=== PATIENT | male | born 1965 | race Caucasian/White ===

== ENCOUNTER 2021-04-28 07:51 | Outpatient (REF) | payer BC, SELFPAY ==
[2021-04-28 11:35] LABS: Hemoglobin 19.2 g/dl (14.0-18.0); Mean Corpuscular HGB Conc 32.8 g/dl (31.0-36.0); Mean Corpuscular Hemoglobin 29.4 pg (27.0-33.0); Mean Corpuscular Volume 89.4 fL (80-98); Mean Platelet Volume 10.2 fL (9.4-12.4); Platelet Count 221 X10*3/uL (160-400); Red Blood Count 6.54 X10*6/uL (4.60-5.80); Red Cell Distribution Width 16.8 % (11.0-16.0); White Blood Count 5.5 X10*3/uL (4.8-10.8)
[2021-04-28 11:36] LABS: Hematocrit 58.5 % (42-52)
[2021-04-28 11:46] LABS: Alanine Aminotransferase 38 U/L (0-40); Albumin Level 4.1 g/dL (3.5-5.0); Alkaline Phosphatase 46 U/L (39-117); Anion Gap 15 (12-20); Aspartate Amino Transferase 34 U/L (5-37); Bilirubin Total 0.9 mg/dL (0.0-1.0); Blood Urea Nitrogen 34 mg/dL (9-16); Carbon Dioxide 24 mmol/L (22-29); Chloride 105 mmol/L (96-108); Cholesterol 188 mg/dL; Estimated Glomerular Filt Rate > 60; Glucose Fasting 87 mg/dL (60-99); HDL Cholesterol 20 mg/dL; LDL Cholesterol Calculated 151 mg/dl; Sodium 139 mmol/L (135-145); Total Protein 6.1 g/dL (6.5-8.0); Triglycerides 89 mg/dL
== END 2021-04-28 07:52 | disposition home or self-care (01) ==
LOC: HO.MANLDS 07:51
PROVIDERS: PCP Internal Medicine; Visit Provider Internal Medicine
DX: I10 Essential (primary) hypertension (principal); Z12.5 Encounter for screening for malignant neoplasm of prostate
CPT/HCPCS: 36415; 80053; 80061; 84153; 85027

== ENCOUNTER 2021-11-28 11:45 | Outpatient (REF) | payer BC, SELFPAY ==
[2021-11-28 12:41] LABS: MANUAL DIFF FLAG NO
[2021-11-28 12:43] LABS: Basophils Absolute Auto 0.1 X10*3/uL (0.0-0.2); Basophils Percent Auto 1.2 % (0-2); Eosinophils Absolute Auto 0.2 X10*3/uL (0.0-0.4); Eosinophils Percent Auto 4.1 % (0-4); Hematocrit 44.7 % (42.0-52.0); Hemoglobin 14.2 g/dl (14.0-18.0); Imm Gran Abs Auto 0.01 X10*3/uL (0.00-0.03); Imm Gran Pct Auto 0.2 % (0.0-0.4); Lymphocytes Absolute Auto 0.9 X10*3/uL (1.2-4.9); Mean Corpuscular HGB Conc 31.8 g/dl (31.0-36.0); Mean Corpuscular Hemoglobin 29.2 pg (27.0-33.0); Mean Corpuscular Volume 91.8 fL (80.0-98.0); Monocytes Absolute Auto 0.6 X10*3/uL (0.1-1.2); Monocytes Percent Auto 15.5 % (2-11); Neutrophils Absolute Auto 2.4 x10*3/uL (2.0-8.3); Platelet Count 208 X10*3/uL (160-400); Red Blood Count 4.87 X10*6/uL (4.60-5.80); Red Cell Distribution Width 14.2 % (11.0-16.0); White Blood Count 4.1 X10*3/uL (4.8-10.8)
[2021-11-28 13:32] LABS: Alanine Aminotransferase 49 U/L (0-40); Albumin Level 4.2 g/dL (3.5-5.0); Alkaline Phosphatase 100 U/L (39-117); Anion Gap 13 (12-20); Aspartate Amino Transferase 34 U/L (5-37); Bilirubin Total 0.3 mg/dL (0.0-1.0); Blood Urea Nitrogen 23 mg/dL (9-16); Calcium 9.9 mg/dL (8.4-10.2); Carbon Dioxide 28 mmol/L (22-29); Chloride 102 mmol/L (96-108); Estimated Glomerular Filt Rate > 60; Glucose Fasting 92 mg/dL (60-99); Potassium 3.8 mmol/L (3.3-5.1); Sodium 139 mmol/L (135-145); Total Protein 6.9 g/dL (6.5-8.0)
[2021-11-28 13:57] LABS: Free T4 (Free Thyroxine) 0.88 ng/dL (0.71-1.85); Thyroid Stimulating Hormone 7.67 uIU/mL (0.32-4.0)
[2021-12-03 15:01] LABS: Testosterone, Free 4.7 pg/mL (35.0-155.0); Testosterone, Total 24 ng/dL (250-1100)
== END 2021-11-28 11:46 | disposition home or self-care (01) ==
LOC: HO.MANLDS 11:45
PROVIDERS: PCP Physician Assistant; Visit Provider Physician Assistant
DX: I25.810 Atherosclerosis of coronary artery bypass graft(s) without angina pectoris (principal); R53.83 Other fatigue
CPT/HCPCS: 36415; 80053; 84402; 84403; 84439; 84443; 85025

== ENCOUNTER 2021-12-19 10:14 | Outpatient (REF) | payer BC, SELFPAY ==
[2021-12-19 11:16] LABS: MANUAL DIFF FLAG NO
[2021-12-19 11:21] LABS: Basophils Percent Auto 0.6 % (0-2); Eosinophils Percent Auto 0.6 % (0-4); Hematocrit 46.6 % (42.0-52.0); Imm Gran Abs Auto 0.03 X10*3/uL (0.00-0.03); Imm Gran Pct Auto 0.5 % (0.0-0.4); Lymphocytes Absolute Auto 0.6 X10*3/uL (1.2-4.9); Lymphocytes Percent Auto 9.8 % (20-40); Mean Corpuscular HGB Conc 32.2 g/dl (31.0-36.0); Mean Corpuscular Hemoglobin 29.4 pg (27.0-33.0); Mean Corpuscular Volume 91.4 fL (80.0-98.0); Mean Platelet Volume 9.6 fL (9.4-12.4); Monocytes Absolute Auto 0.3 X10*3/uL (0.1-1.2); Monocytes Percent Auto 4.7 % (2-11); Neutrophils Absolute Auto 5.3 x10*3/uL (2.0-8.3); Neutrophils Percent Auto 83.8 % (45-73); Platelet Count 208 X10*3/uL (160-400); Red Cell Distribution Width 14.4 % (11.0-16.0); White Blood Count 6.4 X10*3/uL (4.8-10.8)
[2021-12-19 12:14] LABS: Alanine Aminotransferase 25 U/L (0-40); Albumin Level 4.1 g/dL (3.5-5.0); Alkaline Phosphatase 96 U/L (39-117); Anion Gap 14 (12-20); Aspartate Amino Transferase 19 U/L (5-37); Bilirubin Total 0.4 mg/dL (0.0-1.0); Blood Urea Nitrogen 22 mg/dL (9-16); Calcium 9.3 mg/dL (8.4-10.2); Carbon Dioxide 29 mmol/L (22-29); Chloride 101 mmol/L (96-108); Estimated Glomerular Filt Rate > 60; Glucose Random 235 mg/dL (60-115); Potassium 3.9 mmol/L (3.3-5.1); Sodium 140 mmol/L (135-145); Total Protein 6.8 g/dL (6.5-8.0)
[2021-12-19 12:24] LABS: Free T4 (Free Thyroxine) 0.93 ng/dL (0.71-1.85); Thyroid Stimulating Hormone 2.76 uIU/mL (0.32-4.0)
[2021-12-19 12:31] LABS: Uric Acid 6.2 mg/dL (3.4-7.0)
[2021-12-28 11:31] LABS: Testosterone, Free 320.4 pg/mL (35.0-155.0); Testosterone, Total 1047 ng/dL (250-1100)
== END 2021-12-19 10:15 | disposition home or self-care (01) ==
LOC: HO.MANLDS 10:14
PROVIDERS: PCP Physician Assistant; Visit Provider Physician Assistant
DX: I25.810 Atherosclerosis of coronary artery bypass graft(s) without angina pectoris (principal); R53.83 Other fatigue; M10.071 Idiopathic gout, right ankle and foot; E03.0 Congenital hypothyroidism with diffuse goiter
CPT/HCPCS: 36415; 80053; 84402; 84403; 84439; 84443; 84550; 85025

== ENCOUNTER 2023-05-13 12:09 | Outpatient (REF) | payer BC, SELFPAY ==
--- NOTE | ~2023-05-13 | XR_ITS ---
EXAMINATION: XR HAND, LEFT CLINICAL INFORMATION: Chronic pain. COMPARISON: None available. TECHNIQUE: PA, lateral, and oblique views of the left hand. FINDINGS: Bony alignment and mineralization are normal. There is a neutral ulnar variance. No fracture or dislocation is seen. There is mild osteoarthritic change of the second and third distal interphalangeal joints, and minimal osteoarthritic change is seen of the fourth and fifth distal interphalangeal joints. There is moderate osteoarthritic change of the third proximal interphalangeal joint. There is mild osteoarthritic change of the first carpometacarpal joint. No fracture or dislocation is seen. The proximal and distal carpal rows are intact. There is no abnormal bone erosion or periosteal thickening. No focal soft tissue swelling, gas or foreign body is seen. 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 No fracture or dislocation is seen. There is no abnormal bone erosion.
--- NOTE | ~2023-05-13 | XR_ITS ---
EXAMINATION: XR FOOT, RIGHT CLINICAL INFORMATION: Chronic pain. COMPARISON: Radiographs dated 12/18/2017. TECHNIQUE: AP, lateral, and oblique views of the right foot. FINDINGS: Bony alignment and mineralization are normal. No fracture, dislocation or right ankle joint effusion is seen. Boehler's angle is normal. There is a moderate posterior calcaneal spur. There are degenerative changes of the dorsal midfoot. There is mild osteoarthritic change of the second proximal interphalangeal joint. No unusual bony erosive change is seen. There is no focal soft tissue swelling, gas or foreign body. XR/XR foot LT min 3V IMPRESSION: 1. No fracture, dislocation or right ankle joint effusion is seen. 2. There are degenerative changes of the midfoot and forefoot, as detailed. 3. There is a moderate right calcaneal posterior spur. EXAMINATION: XR FOOT, LEFT CLINICAL INFORMATION: Chronic pain. COMPARISON: None available. TECHNIQUE: AP, lateral, and oblique views of the left foot. FINDINGS: Bony alignment and mineralization are normal. No fracture, dislocation or left ankle joint effusion is seen. Boehler's angle is normal. There is a tiny posterior calcaneal spur. No unusual bone erosion is noted. There is no focal soft tissue swelling, gas or foreign body. IMPRESSION: 1. No fracture, dislocation or left ankle joint effusion is seen. 2. There is a tiny left calcaneal posterior spur.
--- NOTE | ~2023-05-13 | XR_ITS ---
EXAMINATION: XR HAND, RIGHT CLINICAL INFORMATION: Chronic pain. COMPARISON: None available. TECHNIQUE: PA, lateral, and oblique views of the right hand. FINDINGS: Bony alignment and mineralization are normal. There is a neutral ulnar variance. There is very mild osteoarthritic change of the interphalangeal joint of the thumb. There is mild osteoarthritic change of the second through fourth proximal and distal interphalangeal joints. No acute fracture or dislocation is seen. On the lateral view, there is an ossific density seen anterior to the radiocarpal joint, which likely represents a chronic avulsed osteophyte. This is of doubtful acute clinical significance. The proximal and distal carpal rows are intact. There is no abnormal bone erosion. The ulnar styloid is intact. No focal soft tissue swelling, gas or foreign body is seen. XR/XR hand RT 2V IMPRESSION: There is multi-focal mild osteoarthritic change of the interphalangeal joints of the right first through fifth fingers. There is no abnormal bone erosion. No acute fracture or dislocation is seen.
--- NOTE | ~2023-05-13 | XR_ITS ---
EXAMINATION: XR FOOT, RIGHT CLINICAL INFORMATION: Chronic pain. COMPARISON: Radiographs dated 12/18/2017. TECHNIQUE: AP, lateral, and oblique views of the right foot. FINDINGS: Bony alignment and mineralization are normal. No fracture, dislocation or right ankle joint effusion is seen. Boehler's angle is normal. There is a moderate posterior calcaneal spur. There are degenerative changes of the dorsal midfoot. There is mild osteoarthritic change of the second proximal interphalangeal joint. No unusual bony erosive change is seen. There is no focal soft tissue swelling, gas or foreign body. XR/XR foot RT min 3V IMPRESSION: 1. No fracture, dislocation or right ankle joint effusion is seen. 2. There are degenerative changes of the midfoot and forefoot, as detailed. 3. There is a moderate right calcaneal posterior spur. EXAMINATION: XR FOOT, LEFT CLINICAL INFORMATION: Chronic pain. COMPARISON: None available. TECHNIQUE: AP, lateral, and oblique views of the left foot. FINDINGS: Bony alignment and mineralization are normal. No fracture, dislocation or left ankle joint effusion is seen. Boehler's angle is normal. There is a tiny posterior calcaneal spur. No unusual bone erosion is noted. There is no focal soft tissue swelling, gas or foreign body. IMPRESSION: 1. No fracture, dislocation or left ankle joint effusion is seen. 2. There is a tiny left calcaneal posterior spur.
[2023-05-13 14:26] LABS: Alanine Aminotransferase 44 U/L (0-40); Alkaline Phosphatase 55 U/L (39-117); Anion Gap 17 (12-20); Aspartate Amino Transferase 30 U/L (5-37); Bilirubin Total 0.5 mg/dL (0.0-1.0); Blood Urea Nitrogen 28 mg/dL (9-16); C Reactive Protein < 0.10 mg/dL (< or = 0.50); Carbon Dioxide 22 mmol/L (22-29); Chloride 101 mmol/L (96-108); Estimated Glomerular Filt Rate > 60; Glucose Random 144 mg/dL (60-115); Sodium 136 mmol/L (135-145); Total Protein 6.6 g/dL (6.5-8.0)
[2023-05-13 14:35] LABS: Erythrocyte Sedimentation Rate 2 MM/HR (0-15)
[2023-05-15 05:28] LABS: Triiodothyronine T3 Free 3.4 pg/mL (2.3-4.2)
[2023-05-17 16:44] LABS: Cyclic Citrullinated Peptide <16 UNITS
[2023-05-17 21:18] LABS: Anti DNA DS Antibody <1 IU/mL; Antibody to SS-A Antigen <1.0 NEG AI (<1.0 NEG); Antibody to SS-B Antigen <1.0 NEG AI (<1.0 NEG)
[2023-05-18 08:34] LABS: Anti Nuclear Antibody Screen NEGATIVE (NEGATIVE)
== END 2023-05-13 12:10 | disposition home or self-care (01) ==
LOC: HO.LAB 12:09
PROVIDERS: PCP Internal Medicine; Visit Provider Physician Assistant
DX: M79.641 Pain in right hand (principal); M79.642 Pain in left hand; M79.671 Pain in right foot; M79.672 Pain in left foot; R06.9 Unspecified abnormalities of breathing; E03.0 Congenital hypothyroidism with diffuse goiter
CPT/HCPCS: 36415; 73120; 73630; 80053; 84481; 85652; 86038; 86140; 86200; 86225; 86235

== ENCOUNTER 2023-06-22 13:21 | Outpatient (REF) | payer BC, SELFPAY ==
[2023-06-22 14:00] LABS: Estimated Average Glucose 154 mg/dL
[2023-06-22 14:30] LABS: Alanine Aminotransferase 51 U/L (0-40); Albumin Level 4.2 g/dL (3.5-5.0); Alkaline Phosphatase 60 U/L (39-117); Anion Gap 17 (12-20); Aspartate Amino Transferase 66 U/L (5-37); Bilirubin Total 0.3 mg/dL (0.0-1.0); Blood Urea Nitrogen 59 mg/dL (9-16); Calcium 10.5 mg/dL (8.4-10.2); Carbon Dioxide 28 mmol/L (22-29); Chloride 95 mmol/L (96-108); Estimated Glomerular Filt Rate 53; Glucose Random 132 mg/dL (60-115); Potassium 4.6 mmol/L (3.3-5.1); Sodium 135 mmol/L (135-145); Total Protein 7.3 g/dL (6.5-8.0)
[2023-06-22 14:47] LABS: Thyroid Stimulating Hormone 4.84 uIU/mL (0.32-4.0)
[2023-06-24 01:29] LABS: Thyroid Peroxidase Antibodies 1 IU/mL (<9)
[2023-06-24 02:58] LABS: Triiodothyronine T3 Free 2.3 pg/mL (2.3-4.2)
== END 2023-06-22 13:22 | disposition home or self-care (01) ==
LOC: HO.LAB 13:21
PROVIDERS: PCP Internal Medicine; Visit Provider Physician Assistant
DX: R73.01 Impaired fasting glucose (principal); E03.0 Congenital hypothyroidism with diffuse goiter
CPT/HCPCS: 36415; 80053; 83036; 84439; 84443; 84481; 86376

== ENCOUNTER 2023-06-23 12:41 | Outpatient (REF) | payer BC, SELFPAY ==
[2023-06-23 14:20] LABS: Calcium 10.3 mg/dL (8.4-10.2); Phosphorus 3.7 mg/dL (2.7-4.5)
[2023-06-25 16:34] LABS: PTHI 33 pg/mL (16-77)
== END 2023-06-23 12:42 | disposition home or self-care (01) ==
LOC: HO.LAB 12:41
PROVIDERS: PCP Internal Medicine; Visit Provider Physician Assistant
DX: N18.31 Chronic kidney disease, stage 3a (principal)
CPT/HCPCS: 36415; 82310; 82550; 83735; 83970; 84100

== ENCOUNTER 2023-07-29 10:09 | Outpatient (REF) | payer BC, SELFPAY ==
--- NOTE | ~2023-07-29 | US_ITS ---
EXAMINATION: US THYROID CLINICAL INFORMATION: Hypothyroidism with diffuse goiter, parathyroid. COMPARISON: None available. TECHNIQUE: Linear transducer grayscale and color Doppler examination with attention to the region of the thyroid. FINDINGS: SIZE: Measurements of the thyroid lobes and nodules are given in sagittal, anteroposterior and transverse dimensions respectively. Right Thyroid Lobe: 4.5 x 1.7 x 2.1 cm, volume 7.7 mL. Parenchyma: The gland echotexture is homogeneous. Thyroid vascularity is normal. Left Thyroid Lobe: 3.6 x 1.9 x 1.7 cm, volume 5.3 mL. Parenchyma: The gland echotexture is homogeneous. Thyroid vascularity is normal. Isthmus: 0.5 cm in maximum AP dimension. No focal thyroid nodule is seen. NODES: No lymphadenopathy is seen in the tissue surrounding the thyroid gland. No parathyroid adenoma identified. US/US thyroid IMPRESSION: Unremarkable thyroid ultrasound. No parathyroid adenoma identified. ACR TI-RADS RECOMMENDATION REFERENCE: Ultrasound-guided fine-needle aspiration, followup ultrasound, no further follow up. * TR1 (0 point) and TR2 (2 points): No FNA or follow up. * TR3 (3 points): FNA if more than or equal to 2.5 cm in maximum dimension, followup ultrasound in 1, 3 and 5 years if 1.5 to 2.4 cm in maximum dimension. * TR4 (4-6 points): FNA if more than or equal to 1.5 cm in maximum dimension, followup ultrasound in 1, 2, 3 and 5 years if 1 to 1.4 cm in maximum dimension. * TR5 (more than or equal to 7 points): FNA if more than or equal to 1 cm in maximum dimension, followup ultrasound every year for 5 years if 0.5 to 0.9 cm in maximum dimension. * TR3, TR4 or TR5 nodules that are below the size threshold for followup receive no follow up.
--- NOTE | ~2023-07-29 | US_ITS ---
EXAMINATION: ULTRASOUND OF KIDNEYS WITH RENAL ARTERY DOPPLER CLINICAL INFORMATION: Chronic kidney disease. COMPARISON: None available. TECHNIQUE: Ultrasound of the kidneys was performed along with color flow Doppler imaging and velocity measurements in the proximal mid and distal renal arteries. Aortic velocities were measured and renal/aortic ratios were calculated. Segmental resistive indices were obtained. FINDINGS: The kidneys appeared normal with the right kidney measuring 15.5 x 5.4 x 7.7 cm and the left kidney measuring 16.6 x 5.5 x 7.1 cm. The right kidney appears normal. On the left, there are 2 simple cysts in the mid kidney measuring 1.2 cm. No solid renal masses. No renal stones. No right-sided hydronephrosis is seen. On the left, there is a lower pole caliectasis seen. Renal cortical thickness appears normal. Velocity measurements along with resistive indices are all normal on the right with highest velocity of 183 cm/s in the mid renal artery. On the left, velocities are elevated proximally at 322 cm/s suggesting renal artery stenosis. Segmental resistive indices on the left are normal. Mid aortic velocity is 96 cm/s which allows for calculation of renal aortic ratio of 1.91 on the right and 3.35 on the left. US/US renal doppler IMPRESSION: 1. Elevated velocities in the proximal left renal artery suggesting renal artery stenosis. CT angiography could be performed for further evaluation. 2. Other incidental findings as described above including possible left-sided intrarenal caliectasis at the lower pole. If CT angiography is performed, delayed images for CT urogram could be obtained to further evaluate that.
--- NOTE | ~2023-07-29 | US_ITS ---
EXAMINATION: ULTRASOUND OF KIDNEYS WITH RENAL ARTERY DOPPLER CLINICAL INFORMATION: Chronic kidney disease. COMPARISON: None available. TECHNIQUE: Ultrasound of the kidneys was performed along with color flow Doppler imaging and velocity measurements in the proximal mid and distal renal arteries. Aortic velocities were measured and renal/aortic ratios were calculated. Segmental resistive indices were obtained. FINDINGS: The kidneys appeared normal with the right kidney measuring 15.5 x 5.4 x 7.7 cm and the left kidney measuring 16.6 x 5.5 x 7.1 cm. The right kidney appears normal. On the left, there are 2 simple cysts in the mid kidney measuring 1.2 cm. No solid renal masses. No renal stones. No right-sided hydronephrosis is seen. On the left, there is a lower pole caliectasis seen. Renal cortical thickness appears normal. Velocity measurements along with resistive indices are all normal on the right with highest velocity of 183 cm/s in the mid renal artery. On the left, velocities are elevated proximally at 322 cm/s suggesting renal artery stenosis. Segmental resistive indices on the left are normal. Mid aortic velocity is 96 cm/s which allows for calculation of renal aortic ratio of 1.91 on the right and 3.35 on the left. US/US renal BI IMPRESSION: 1. Elevated velocities in the proximal left renal artery suggesting renal artery stenosis. CT angiography could be performed for further evaluation. 2. Other incidental findings as described above including possible left-sided intrarenal caliectasis at the lower pole. If CT angiography is performed, delayed images for CT urogram could be obtained to further evaluate that.
== END 2023-07-29 10:10 | disposition home or self-care (01) ==
LOC: HO.US 10:09
PROVIDERS: PCP Internal Medicine; Visit Provider Physician Assistant
DX: N18.31 Chronic kidney disease, stage 3a (principal); E03.0 Congenital hypothyroidism with diffuse goiter; I1A.0 Resistant hypertension
CPT/HCPCS: 76536; 76775; 93975

== ENCOUNTER 2023-08-23 10:42 | Outpatient (REF) | payer BC, SELFPAY ==
[2023-08-23 14:48] LABS: Free T4 (Free Thyroxine) 0.92 ng/dL (0.71-1.85); Thyroid Stimulating Hormone 2.03 uIU/mL (0.32-4.0)
[2023-08-25 05:19] LABS: Triiodothyronine T3 Free 3.1 pg/mL (2.3-4.2)
[2023-08-25 06:13] LABS: Thyroid Peroxidase Antibodies <1 IU/mL (<9)
== END 2023-08-23 10:43 | disposition home or self-care (01) ==
LOC: HO.MANLDS 10:42
PROVIDERS: Visit Provider Physician Assistant
DX: E03.0 Congenital hypothyroidism with diffuse goiter (principal)
CPT/HCPCS: 36415; 84439; 84443; 84481; 86376

== ENCOUNTER 2024-03-06 11:24 | Outpatient (REF) | payer BC, SELFPAY ==
[2024-03-06 13:18] LABS: Alanine Aminotransferase 65 U/L (0-40); Albumin Level 4.1 g/dL (3.5-5.0); Alkaline Phosphatase 73 U/L (39-117); Anion Gap 20 (12-20); Aspartate Amino Transferase 58 U/L (5-37); Bilirubin Total 0.5 mg/dL (0.0-1.0); Blood Urea Nitrogen 43 mg/dL (9-16); Calcium 11.7 mg/dL (8.4-10.2); Carbon Dioxide 28 mmol/L (22-29); Chloride 95 mmol/L (96-108); Estimated Glomerular Filt Rate 48; Glucose Random 64 mg/dL (60-115); Potassium 5.2 mmol/L (3.3-5.1); Sodium 138 mmol/L (135-145); Total Protein 6.9 g/dL (6.5-8.0)
== END 2024-03-06 11:25 | disposition home or self-care (01) ==
LOC: HO.LAB 11:24
PROVIDERS: PCP Internal Medicine; Visit Provider Physician Assistant
DX: N18.31 Chronic kidney disease, stage 3a (principal)
CPT/HCPCS: 36415; 80053

== ENCOUNTER 2024-04-27 13:39 | Outpatient (REF) | payer BC, SELFPAY ==
--- NOTE | ~2024-04-27 | XR_ITS ---
EXAMINATION: XR ELBOW, RIGHT CLINICAL INFORMATION: Pain COMPARISON: None available. TECHNIQUE: AP, lateral, and oblique views of the right elbow. FINDINGS: The bones are intact. No fracture or joint effusion. Alignment is anatomic. Joint spaces are maintained. Small calcific density adjacent to the lateral epicondyles consistent with tendinosis. Tiny bony spur extends off the olecranon. Small calcific densities are seen posterior to the olecranon. There is moderate to marked soft tissue swelling over the olecranon consistent with olecranon bursitis. XR/XR elbow RT min 3V IMPRESSION: Olecranon bursitis. Electronically signed by: Patience Jiang MD 05/18/2024 02:33 PM EDT
[2024-04-27 14:43] LABS: Estimated Average Glucose 192 mg/dL; Hemoglobin A1c % 8.3 % (<6.0)
[2024-04-27 15:06] LABS: Alanine Aminotransferase 54 U/L (0-40); Albumin Level 3.7 g/dL (3.5-5.0); Alkaline Phosphatase 83 U/L (39-117); Anion Gap 12 (12-20); Aspartate Amino Transferase 36 U/L (5-37); Bilirubin Total 0.5 mg/dL (0.0-1.0); Blood Urea Nitrogen 25 mg/dL (9-16); Calcium 9.7 mg/dL (8.4-10.2); Carbon Dioxide 29 mmol/L (22-29); Chloride 102 mmol/L (96-108); Estimated Glomerular Filt Rate > 60; Glucose Random 92 mg/dL (60-115); Potassium 4.1 mmol/L (3.3-5.1); Sodium 139 mmol/L (135-145); Total Protein 6.1 g/dL (6.5-8.0)
== END 2024-04-27 13:40 | disposition home or self-care (01) ==
LOC: HO.XRAY 13:39
PROVIDERS: PCP Internal Medicine; Visit Provider Physician Assistant
DX: M25.521 Pain in right elbow (principal); E11.9 Type 2 diabetes mellitus without complications
CPT/HCPCS: 36415; 73080; 80053; 83036

== ENCOUNTER 2024-05-01 07:05 | Outpatient (REF) | payer BC, SELFPAY ==
[2024-05-01 07:28] LABS: MANUAL DIFF FLAG NO
[2024-05-01 07:50] LABS: Basophils Absolute Auto 0.1 X10*3/uL (0.0-0.2); Basophils Percent Auto 1.1 % (0-2); Eosinophils Absolute Auto 0.2 X10*3/uL (0.0-0.4); Eosinophils Percent Auto 3.9 % (0-4); Hemoglobin 18.2 g/dl (14.0-18.0); Imm Gran Abs Auto 0.04 X10*3/uL (0.00-0.03); Imm Gran Pct Auto 0.7 % (0.0-0.4); Lymphocytes Absolute Auto 0.7 X10*3/uL (1.2-4.9); Lymphocytes Percent Auto 10.8 % (20-40); Mean Corpuscular HGB Conc 32.3 g/dl (31.0-36.0); Mean Corpuscular Hemoglobin 27.7 pg (27.0-33.0); Mean Corpuscular Volume 85.8 fL (80.0-98.0); Mean Platelet Volume 9.1 fL (9.4-12.4); Monocytes Absolute Auto 0.7 X10*3/uL (0.1-1.2); Neutrophils Absolute Auto 4.4 x10*3/uL (2.0-8.3); Neutrophils Percent Auto 71.5 % (45-73); Platelet Count 214 X10*3/uL (160-400); Red Blood Count 6.57 X10*6/uL (4.60-5.80); Red Cell Distribution Width 18.8 % (11.0-16.0); White Blood Count 6.1 X10*3/uL (4.8-10.8)
[2024-05-01 07:51] LABS: Hematocrit 56.4 % (42.0-52.0)
[2024-05-01 08:05] LABS: Estimated Average Glucose 186 mg/dL; Hemoglobin A1c % 8.1 % (<6.0)
[2024-05-01 08:11] LABS: Appearance Urine Clear; Color Urine Yellow; Glucose Urine UA Negative (Negative); Leukocyte Esterase Urine Negative (Negative); Nitrite Urine Negative (Negative); Specific Gravity - Urine 1.015 (1.005-1.025); UMIC TRIGGER UACC YES; Urine Blood Negative (Negative); Urine Ketones Negative (Negative); Urine Protein 300 (3+) mg/dL (Neg-Trace)
[2024-05-01 08:12] LABS: Alanine Aminotransferase 53 U/L (0-40); Albumin Level 3.8 g/dL (3.5-5.0); Alkaline Phosphatase 74 U/L (39-117); Anion Gap 12 (12-20); Aspartate Amino Transferase 58 U/L (5-37); Blood Urea Nitrogen 35 mg/dL (9-16); C Reactive Protein < 0.10 mg/dL (< or = 0.50); Calcium 11.1 mg/dL (8.4-10.2); Carbon Dioxide 31 mmol/L (22-29); Chloride 98 mmol/L (96-108); Estimated Glomerular Filt Rate 52; Glucose Random 109 mg/dL (60-115); Lactate Dehydrogenase 302 U/L (118-273); Potassium 4.9 mmol/L (3.3-5.1); Sodium 136 mmol/L (135-145); Total Protein 6.5 g/dL (6.5-8.0)
[2024-05-01 08:18] LABS: Bacteria Urine None Seen (None Seen); Hyaline Casts Urine 0-2 /LPF (0-2); RBC Urine 0-2 /HPF (0-2); Squamous Epithelial Cell Urine 0-2 /HPF (0-2); WBC Urine 0-5 /HPF (0-5)
[2024-05-01 08:19] LABS: Parathyroid Hormone Intact 33.1 pg/mL (8.7-77.1)
[2024-05-01 08:27] LABS: Erythrocyte Sedimentation Rate 8 MM/HR (0-15)
[2024-05-04 22:37] LABS: NT-proBNP 142 pg/mL (<125)
[2024-05-10 14:43] LABS: Renin 14.94 ng/mL/h (0.25-5.82)
== END 2024-05-01 07:06 | disposition home or self-care (01) ==
LOC: HO.LAB 07:05
PROVIDERS: PCP Internal Medicine; Visit Provider Physician Assistant
DX: N17.8 Other acute kidney failure (principal); R06.00 Dyspnea, unspecified; E11.65 Type 2 diabetes mellitus with hyperglycemia
CPT/HCPCS: 36415; 80053; 81001; 83036; 83615; 83880; 83970; 84244; 85025; 85652; 86140